=== PATIENT | male | born 1940 | race Two or more races ===

== ENCOUNTER → 2021-06-30 | Emergency (ER) | payer OTHER ==
[~2021-06-30] VITALS: Ht 170.2 cm; Wt 49.9 kg
[~2021-06-30] MED LIST: ETHAMBUTOL; FERROUS SULFATE; RIFAMPIN
== END | disposition left against medical advice (07) ==
LOC: ER 01:38
DX: J18.9 Pneumonia, unspecified organism (principal); A15.9 Respiratory tuberculosis unspecified